=== PATIENT | male | born 1985 | race African-American/Black ===

== ENCOUNTER 2019-07-26 22:09 | Emergency (ER) | payer OTHER ==
[~2019-07-26] VITALS: Ht 175.3 cm; Wt 69.4 kg
[2019-07-26 22:16] VITALS: BP 129/90; Ht 175.3 cm; Wt 69.4 kg
== END 2019-07-26 23:28 | disposition home or self-care (01) ==
LOC: ED 22:09
DX: J45.909 Unspecified asthma, uncomplicated (principal); R03.0 Elevated blood-pressure reading, without diagnosis of hypertension
CPT/HCPCS: J7512